=== PATIENT | female | born 1975 | race Caucasian/White ===

== ENCOUNTER 2016-12-01 17:23 | Inpatient (IN) | payer BC ==
[2016-12-01] MEDS ORDERED: Sodium Chloride 0.9% 10 ML Syringe FLUSH PRN ×2 (18:00→18:23)
[2016-12-01] MEDS ORDERED: Citric Acid/Sodium Citrate Solution 30 ML Cup PO SCH (18:00)
[2016-12-01] MEDS ORDERED: Sodium Chloride 0.9% 2.5 ML Syringe FLUSH PRN ×2 (18:00→18:23)
[2016-12-01] MEDS ORDERED: ceFAZolin 2 GM in Premix Bag 1 BAG IV ONE (18:00)
[2016-12-01] MEDS: Lactated Ringers 1,000 ML IV SCH ×2 (18:05→19:14)
--- NOTE | 2016-12-01 18:31 | PCM.PREANE ---
<Jules Mckeon E - Last Filed: 12/01/16 18:26> Preanesthetic Assessment - ANESTHESIA/TRANSFUSION/FAMILY HX Anesthesia/Transfusion History: Prior Anesthesia - REVIEW OF SYSTEMS Constitutional: Reports: no symptoms EVENT ATTENDANT: Reports: no symptoms Respiratory: Reports: no symptoms Cardiovascular: Reports: no symptoms GI: Reports: no symptoms Other: Reports: none - PHYSICAL ASSESSMENT Height: 5 ft 8 in Weight: 260 lb ASA Class: 2E Mental Status: alert & oriented x3 Airway Class: Mallampati = 2 Dentition: Reports: normal dentition Thyro-Mental Finger Breadths: 3 Mouth Opening Finger Breadths: 3 ROM/Head Extension: full Respiratory Status: lungs clear to auscultation bilaterally Cardiovascular Status: regular rate & rhythm, normal S1, S2, no murmur, blood pressure WNL - LAB Values: Laboratory Last Values WBC 10.44 K/uL (4.0-11.0) 12/01/16 18:05 RBC 4.07 M/uL (4.30-5.90) L 12/01/16 18:05 Hgb 12.3 g/dL (12.0-16.0) 12/01/16 18:05 Hct 37.1 % (36.0-46.0) 12/01/16 18:05 MCV 91.2 fL (80.0-98.0) 12/01/16 18:05 MCH 30.2 pg (27.0-32.0) 12/01/16 18:05 MCHC 33.2 g/dL (31.0-37.0) 12/01/16 18:05 RDW Std Deviation 47.1 fl (28.0-62.0) 12/01/16 18:05 RDW Coeff of Dagoberto 14 % (11.0-15.0) 12/01/16 18:05 Plt Count 186 K/uL (150-400) 12/01/16 18:05 MPV 11.20 fL (7.40-12.00) 12/01/16 18:05 Nucleated RBC % 0.0 /100WBC 12/01/16 18:05 Nucleated RBCs # 0 K/uL 12/01/16 18:05 Blood Type O POSITIVE 12/01/16 18:05 Antibody Screen NEGATIVE 12/01/16 18:05 Crossmatch See Detail 12/01/16 18:05 - ALLERGIES Allergies/Adverse Reactions: Allergies Allergy/AdvReac Type Severity Reaction Status Date / Time No Known Allergies Allergy Verified 02/17/14 12:30 - ANESTHESIA PLAN Anesthesia Type Planned: general anesthesia, spinal - ACKNOWLEDGEMENTS Pt an appropriate candidate for the planned anesthesia: Yes Alternatives and risks of anesthesia discussed w pt/guardian: Yes Pt/Guardian understands and agree with anesthesia plan: Yes PreAnesthesia Questionnaire HEENT History: Reports: None Cardiovascular History: Reports: Other (see below) (Recent tachycardia, EKG - SR , Echo essentially normal 09/2017) Respiratory History: Reports: Other (see below) (smoker) Gastrointestinal History: Reports: GERD Genitourinary History: Reports: None TRAIN GATE ATTENDANT History: Reports: : 6 Para: 4 LMP (Approximate): Other OB/BYN History: 1 - vaginal delivery. 3 - c section deliveries Musculoskeletal History: Reports: None Neurological History: Reports: None Psychiatric History: Reports: Depression Endocrine/Metabolic History: Reports: Obesity/BMI 30+ Hematologic History: Reports: None Immunologic History: Reports: None Oncologic (Cancer) History: Reports: None Dermatologic History: Reports: None - Infectious Disease History Infectious Disease History: Reports: None - Past Surgical History Female Surgical History: Reports: Other (see below) (1 vaginal delivery 3 previous c-sections) - SUBSTANCE USE Second Hand Smoke Exposure: Yes Days Per Week of Alcohol Use: 1 Number of Drinks Per Day: 4 Total Drinks Per Week: 4 Recreational Drug Use History: No - HOME MEDS Home Medications: Home Meds Escitalopram [Lexapro] 10 mg PO DAILY 02/17/14 [History] buPROPion [Wellbutrin XL] 150 mg PO DAILY 02/17/14 [History] Norgestrel-Ethinyl Estradiol [Elinest] 1 tab PO DAILY 05/15/14 [History] - CURRENT (IN HOUSE) MEDS Current Meds: Current Medications Citric Acid/Sodium Citrate (Bicitra Solution) 30 ml PO .ONCE CATHERINE Last Admin: 12/01/16 19:45 Dose: 30 ml Lactated Ringer's (Ringers, Lactated) 1,000 mls @ 500 mls/hr IV .BOLUS CATHERINE Last Admin: 12/01/16 19:14 Dose: 500 mls/hr Sodium Chloride (Saline Flush) 10 ml FLUSH ASDIRECTED PRN PRN Reason: Keep Vein Open Sodium Chloride (Saline Flush) 2.5 ml FLUSH ASDIRECTED PRN PRN Reason: Keep Vein Open Sodium Chloride (Saline Flush) 10 ml FLUSH ASDIRECTED PRN PRN Reason: Keep Vein Open Sodium Chloride (Saline Flush) 2.5 ml FLUSH ASDIRECTED PRN PRN Reason: Keep Vein Open Discontinued Medications Fentanyl (Sublimaze) Confirm Administered Dose 100 mcg .ROUTE .STK-MED ONE Stop: 12/01/16 20:52 Glycopyrrolate (Robinul) Confirm Administered Dose 1 mg .ROUTE .STK-MED ONE Stop: 12/01/16 20:08 Cefazolin Sodium/Dextrose 2 gm (/ Premix) 50 mls @ 100 mls/hr IV ONETIME ONE Stop: 12/01/16 18:29 Midazolam HCl (Versed 1 Mg/Ml) Confirm Administered Dose 2 mg .ROUTE .STK-MED ONE Stop: 12/01/16 20:11 Phenylephrine HCl (Phenylephrine In Ns 100 Mcg/Ml) Confirm Administered Dose 1 mg .ROUTE .STK-MED ONE Stop: 12/01/16 20:08 <Fransisco Jerez - Last Filed: 12/01/16 20:55> Preanesthetic Assessment - REVIEW OF SYSTEMS Constitutional: Reports: no symptoms EVENT ATTENDANT: Reports: no symptoms Respiratory: Reports: no symptoms Cardiovascular: Reports: no symptoms GI: Reports: no symptoms Other: Reports: none - PHYSICAL ASSESSMENT ASA Class: 2E Other: 2 iv accesses prepared in case of blood requirement - BLOOD Blood Available: Yes Product(s) Available: PRBC (2u) - ANESTHESIA PLAN Medication Ordered: Antacids (bicitra) Preop Beta Sam: No Anesthesia Type Planned: spinal (Dr. Javier Lancaster)
[2016-12-01] MEDS ORDERED: Phenylephrine/Normal Saline 100 MCG/ML 10 ML Syringe ONE (20:07)
[2016-12-01] MEDS ORDERED: Midazolam 1 MG/ML 2 ML SDV ONE (20:10)
[2016-12-01] MEDS ORDERED: fentaNYL 100 MCG/2 ML SDV ONE (20:51)
[2016-12-01] MEDS ORDERED: Propofol 200 MG/20 ML SDV ONE (20:56)
[2016-12-01] MEDS ORDERED: Lidocaine 2% 5 ML SDV ONE (21:03)
[2016-12-01] MEDS ORDERED: Bisacodyl 10 MG Supp RECTAL PRN (21:52)
[2016-12-01] MEDS ORDERED: Ondansetron 4 MG/2 ML SDV IV PRN (21:52)
[2016-12-01] MEDS ORDERED: diphenhydrAMINE 50 MG/ML SDV IVPUSH PRN ×2 (21:52→21:54)
[2016-12-01] MEDS ORDERED: Lanolin 100% Cream 7 GM Tube TOP PRN (21:52)
[2016-12-01] MEDS ORDERED: Nalbuphine 10 MG/1 ML Vial IVPUSH PRN (21:54)
[2016-12-01] MEDS ORDERED: Naloxone 0.4 MG/ML Syringe IVPUSH PRN (21:54)
[2016-12-01] MEDS ORDERED: fentaNYL 100 MCG/2 ML SDV IVPUSH PRN (21:55)
[2016-12-01] MEDS ORDERED: Lactated Ringers 1,000 ML IV SCH (22:00)
--- NOTE | 2016-12-01 22:06 | PCM.OPNOTE ---
- General Post-Op/Procedure Note Date of Surgery/Procedure: 12/01/16 Operative Procedure(s): 1) Repeat section. 2) Bilateral salpingectomy Findings: Male infant, Wt 3310gram, Apgars 8 and 9. Bloody amniotic fluid with approximately 50mls egress of blood clots. Grossly normal placenta with 3 vessel cord. Normal uterus, tubes and ovaries. Pre Op Diagnosis: 1) 38.1 weeks IUP 2) PROM 3) Possible placental abruption 4) Polyhydramnios. 5)Desires premanent sterilization Post-Op Diagnosis: Same Anesthesia Technique: Spinal Primary Surgeon: Marina Herrera Anesthesia Provider: Jules Mckeon (CARDIOLOGY PHYSICIAN ASSISTANT) Pathology: Placenta. Cord blood and gases Fluid Replacement, Intraop: 4,000 Output, Urine Amount: 200 EBL in mLs: 700 Complications: None Condition: Good
[2016-12-01] MEDS: Ketorolac 30 MG/ML SDV IVPUSH SCH (22:25)
--- NOTE | 2016-12-01 22:42 | PCM.POSTAN ---
POST ANESTHESIA ASSESSMENT - MENTAL STATUS Mental Status: alert, oriented - RESPIRATORY Respiratory Status: respiratory rate WNL, airway patent, O2 saturation stable - CARDIOVASCULAR CV Status: pulse rate WNL, blood pressure stable - GASTROINTESTINAL GI Status: no symptoms - POST OP HYDRATION Hydration Status: adequate & stable
--- NOTE | 2016-12-02 00:43 | OR ---
SURGEON: Marina Herrera MD PIN INSERTER REGULATOR: Placido Walls MD DATE OF PROCEDURE: 12/01/2016 PREOPERATIVE DIAGNOSES: 1. A 38 weeks and 1 day gestation. 2. Premature rupture of membranes. 3. Possible placental abruption. 4. Polyhydramnios. 5. Previous x 3 6. Desires permanent sterilization. POSTOPERATIVE DIAGNOSES: 1. A 38 weeks and 1 day gestation. 2. Premature rupture of membranes. 3. Possible placental abruption. 4. Polyhydramnios. 5. Previous C- section x 3 6. Desires permanent sterilization. 7. Delivered. PROCEDURE: Repeat Low transverse section with bilateral salpingectomies ANESTHESIA: Spinal. ESTIMATED BLOOD LOSS: 700 mL. IV FLUIDS: 4000 of crystalloid. URINE OUTPUT: 200 mL. COMPLICATIONS: None. DISPOSITION: Stable to recovery room. PATHOLOGY: Placenta. Left and Right fallopian tubes. FINDINGS: Male , weight 3310 g. score 8 and 9 at 1 and 5 minutes respectively. Bloody amniotic fluid. Egress of approximately 50mls of clots was noted upon entering the uterine cavity. Grossly normal placenta with 3-vessel cord with no retroplacental clots seen. Normal uterus, tubes, and ovaries. INDICATION: A 40-year-old G6, P4 presented to Labor and Delivery at 38 weeks and 1 day gestation with a history of spontaneous rupture of membrane at about 5:00 p.m., bloody fluid accompanied with irregular contractions. Reported active fetus. On admission, she was found to have heavily blood stained amniotic fluid draining but was otherwise comfortable. heart tracing was a category 1 with irregular contractions on the monitor. On vaginal exam, she was 1 cm dilated. She has a history of 3 prior deliveres and apart from polyhydramnios diagnosed late in the 3rd trimester, she otherwise had an uncomplicated care. GBS negative. She had also requested permanent sterilization at her c- section, opting for a bilateral salpingectomy, which was approved by the Hospital Ethics Committee. When I evaluated the patient, she was nabeel every 2 to 4 minutes and getting increasingly uncomfortable but coping well heart tracing was 130 baseline category 1. The patient was noted to be sitting in a puddle of bloody amniotic fluid. I re-examined her and confirmed that she was 1 cm dilated, and upon examination , copious amount of dark red heavily blood tinged amniotic fluid was noted. She had already consented for repeat section with bilateral salpingectomy and this was confirmed with the patient. section risks were re- explained to the patient and her partner and also explained that she might have had a possible small placental abruption when the membrane rupture occurred but that baby looks good on the monitor and we needed to proceed with a section as soon as possible. She was type and cross- matched 2 units of blood and Ancef 2 g were given. DESCRIPTION OF PROCEDURE: The patient was taken to the operating room, where spinal anesthesia was performed and found to be adequate. She was then placed in dorsal supine position with a leftward tilt and prepped and draped in the normal sterile fashion for section. She had SCDs in place, a Robles catheter in place, and had received 2 g of Ancef. Appropriate time-out was held. A Pfannenstiel incision was made through the old scar and carried through to the underlying layer of fascia with the scalpel. The fascia was scored in the midline and extended laterally with the Saucedo. The superior aspect of this fascial incision was grasped with Luis Miguel clamps, elevated, and the rectus muscle was dissected off with the scalpel. Attention was turned to the inferior aspect of the fascial incision, which in similar fashion was grasped with Luis Miguel clamps and rectus muscle dissected off with the scalpel. The rectus muscle was then elevated in the midline using 2 Allis clamps and was carefully with the Bovie until the parietal peritoneum was reached. The parietal peritoneum was then entered sharply with the Metzenbaum scissors and a digital sweep of the abdominal cavity was performed and no significant adhesions palpated. This peritoneal incision was then extended upwards and downwards with good visualization of the bladder and other vital organs. The incision was further extended laterally by stretching. An Kranthi self-retaining retractor was then placed into the cavity and the vesicoureteral peritoneum was identified, picked up, and entered sharply with the Metzenbaum scissors, and the bladder flap was created digitally. A transverse incision was made on the lower uterine segment, extended upwards and downwards digitally. Once the uterine cavity was entered, an egress of approximately 50 mL of dark blood clots was noted. The infant's head was delivered atraumatically with the senior office support assistant sosa applying fundal pressure, followed by the shoulders and the rest of the baby. The oropharynx and the nostrils were bulb suctioned on the abdomen by my senior office support assistant sosa, Dr. Walls, who is also the cloth mender transportation engineering technician. The cord was then double clamped and cut. The baby was vigorous and cried spontaneously at . Dr. Walls then took the baby over to the warmer for further evaluation. Cord blood and gas samples were obtained. The placenta was delivered manually and no retroplacental cord was noted. The uterine cavity was cleaned of all clots and debris. The hysterotomy site was then repaired in 2 layers using 0 Vicryl suture, the first layer was repaired in a running locked fashion and the second imbricating layer was performed to obtain excellent hemostasis. Due to multiple oozy areas on the edge of the bladder flap, the bladder flap was reapproximated with 3-0 Monocryl suture for extra tamponade, hemostasis was achieved. The hysterotomy site was found to have excellent hemostasis. The fallopian tubes and ovaries were then examined. A verbal confirmation to go ahead with bilateral salpingectomy was obtained from the patient. The left tube was traced to the fimbrial end, then grasped with 2 Babcocks. Using Harmonic device, a salpingectomy was performed with the usual technique. The tube was passed off the surgical field. Attention was turned to the right side, the right tube was identified, traced to the fimbrial end, grasped with 2 Babcocks, and then a salpingectomy was performed using a Harmonic. Both resected areas were found to be hemostatic. Copious irrigation was performed. The Kranthi retractor was removed from the abdominal cavity. The peritoneal edges were identified and this layer was closed with 2-0 Vicryl suture. The muscle was reapproximated with mattress stitches using 2-0 Vicryl. The subfascial layer was found to have excellent hemostasis. The fascia was closed with 0 Vicryl in a running fashion. The subcuticular layer was made hemostatic with electrocautery. The skin was closed with 4-0 Monocryl on a curved needle using subcuticular stitches. The patient tolerated the procedure well. Sponge, instrument, and needle counts were correct at the end of the procedure. Patient was taken to the recovery room in stable condition and the baby stable to the NICU. ADUMVIV / MODL /[id number] MTDD
[2016-12-02] MEDS: Ketorolac 30 MG/ML SDV IVPUSH SCH ×4 (03:35→22:02)
[2016-12-02] MEDS: Docusate Sodium 100 MG Cap PO SCH ×2 (09:03→22:01)
[2016-12-02] MEDS: buPROPion 150 MG Tab.ER PO SCH (09:08)
--- NOTE | 2016-12-02 12:00 | PCM.PNPP ---
- General Info Date of Service: 12/02/16 Functional Status: Reports: pain controlled, tolerating diet, ambulating, urinating - Review of Systems General: Denies: fever, weakness, fatigue, malaise Pulmonary: Denies: shortness of breath, pleuritic chest pain, cough Cardiovascular: Denies: chest pain, palpitations, dyspnea on exertion Genitourinary: Reports: incontinence. Denies: dysuria, flank pain Neurological: Denies: headache Psychiatric: Denies: confusion, depression, mood lability, anxiety - General Info Date of Service: 12/02/16 - Patient Data Vital Signs - most recent: Last Vital Signs Temp 36.4 C 12/02/16 08:30 Pulse 85 12/02/16 08:30 Resp 16 12/02/16 08:30 BP 117/68 12/02/16 08:30 Pulse Ox 97 12/02/16 08:30 Weight - most recent: 260 lb I&O - last 24 hours: Intake & Output 12/01/16 12/02/16 12/02/16 22:59 06:59 14:59 Intake Total 6800 Output Total 400 400 200 Balance 6400 -400 -200 Lab Results - last 24 hrs: Laboratory Results - last 24 hr 12/01/16 12/01/16 12/02/16 Range/Units 18:05 18:05 06:19 WBC 10.44 (4.0-11.0) K/uL RBC 4.07 L (4.30-5.90) M/uL Hgb 12.3 9.9 L (12.0-16.0) g/dL Hct 37.1 29.4 L (36.0-46.0) % MCV 91.2 (80.0-98.0) fL MCH 30.2 (27.0-32.0) pg MCHC 33.2 (31.0-37.0) g/dL RDW Std Deviation 47.1 (28.0-62.0) fl RDW Coeff of Dagoberto 14 (11.0-15.0) % Plt Count 186 (150-400) K/uL MPV 11.20 (7.40-12.00) fL Nucleated RBC % 0.0 /100WBC Nucleated RBCs # 0 K/uL Blood Type O POSITIVE Antibody Screen NEGATIVE Crossmatch See Detail Med Orders - Current: Current Medications Bisacodyl (Dulcolax) 10 mg RECTAL .ONCE PRN PRN Reason: Constipation Bupropion HCl (Wellbutrin Xl) 150 mg PO DAILY ON LICENSE OF [facility] Last Admin: 12/02/16 09:08 Dose: 150 mg Diphenhydramine HCl (Benadryl) 25 mg IVPUSH Q4H PRN PRN Reason: Itching Stop: 12/02/16 21:54 Last Admin: 12/02/16 00:32 Dose: 25 mg Diphenhydramine HCl (Benadryl) 25 mg IVPUSH Q6H PRN PRN Reason: Itching or Nausea Docusate Sodium (Colace) 100 mg PO BID ON LICENSE OF [facility] Last Admin: 12/02/16 09:03 Dose: 100 mg Emollient Ointment (Lansinoh Hpa) 0 gm TOP ASDIRECTED PRN PRN Reason: Sore Nipples Fentanyl (Sublimaze) 50 mcg IVPUSH Q45M PRN PRN Reason: Pain Stop: 12/02/16 15:11 Lactated Ringer's (Ringers, Lactated) 1,000 mls @ 125 mls/hr IV ASDIRECTED ON LICENSE OF [facility] Last Admin: 12/01/16 22:55 Dose: 125 mls/hr Ibuprofen (Motrin) 800 mg PO Q8H PRN PRN Reason: mild pain or fever Ketorolac Tromethamine (Toradol) 30 mg IVPUSH Q6H ON LICENSE OF [facility] Stop: 12/02/16 22:01 Last Admin: 12/02/16 10:31 Dose: 30 mg Nalbuphine HCl (Nubain) 5 mg IVPUSH Q3H PRN PRN Reason: Pruritis Stop: 12/02/16 21:54 Naloxone HCl (Narcan) 0.1 mg IVPUSH ONETIME PRN PRN Reason: Resp. Depression Stop: 12/02/16 21:54 Ondansetron HCl (Zofran) 4 mg IV Q4H PRN PRN Reason: Nausea/Vomiting Oxycodone/Acetaminophen (Percocet 325-5 Mg) 1 tab PO Q4H PRN PRN Reason: Pain (moderate 4-6) Oxycodone/Acetaminophen (Percocet 325-5 Mg) 2 tab PO Q4H PRN PRN Reason: Pain (moderate 4-6) Discontinued Medications Citric Acid/Sodium Citrate (Bicitra Solution) 30 ml PO .ONCE CATHERINE Last Admin: 12/01/16 19:45 Dose: 30 ml Fentanyl (Sublimaze) Confirm Administered Dose 100 mcg .ROUTE .STK-MED ONE Stop: 12/01/16 20:52 Glycopyrrolate (Robinul) Confirm Administered Dose 1 mg .ROUTE .STK-MED ONE Stop: 12/01/16 20:08 Lactated Ringer's (Ringers, Lactated) 1,000 mls @ 500 mls/hr IV .BOLUS CATHERINE Last Admin: 12/01/16 19:14 Dose: 500 mls/hr Cefazolin Sodium/Dextrose 2 gm (/ Premix) 50 mls @ 100 mls/hr IV ONETIME ONE Stop: 12/01/16 18:29 Lidocaine (Xylocaine-Mpf 2%) Confirm Administered Dose 5 ml .ROUTE .STK-MED ONE Stop: 12/01/16 21:04 Midazolam HCl (Versed 1 Mg/Ml) Confirm Administered Dose 2 mg .ROUTE .STK-MED ONE Stop: 12/01/16 20:11 Phenylephrine HCl (Phenylephrine In Ns 100 Mcg/Ml) Confirm Administered Dose 1 mg .ROUTE .STK-MED ONE Stop: 12/01/16 20:08 Propofol (Diprivan 20 Ml) Confirm Administered Dose 200 mg .ROUTE .STK-MED ONE Stop: 12/01/16 20:57 Sodium Chloride (Saline Flush) 10 ml FLUSH ASDIRECTED PRN PRN Reason: Keep Vein Open Sodium Chloride (Saline Flush) 2.5 ml FLUSH ASDIRECTED PRN PRN Reason: Keep Vein Open Sodium Chloride (Saline Flush) 10 ml FLUSH ASDIRECTED PRN PRN Reason: Keep Vein Open Sodium Chloride (Saline Flush) 2.5 ml FLUSH ASDIRECTED PRN PRN Reason: Keep Vein Open - Interaction Infant Disposition, : to Nursery Feeding: Other (see below) (Pumping) - Recovery Exam Fundal Tone: Firm Fundal Level: 1 Fingerbreadths Below Umbilicus Fundal Placement: Midline Lochia Amount: Scant Lochia Color: Rubra/Red Perineum Description: Intact, Minimal Bruising/Swelling Episiotomy/Laceration: None Bladder Status: Voiding Urinary Elimination: Voided - Exam General: alert, oriented Neck: supple Lungs: Clear to auscultation, Normal respiratory effort Cardiovascular: regular rate, regular rhythm Abdomen: bowel sounds present, soft, no tenderness, no distension Extremities: no calf tenderness, edema Wound/Incisions: healing well Psy/Mental Status: alert, normal affect, normal mood - Problem List & Annotations (1) Previous delivery, delivered SNOMED Code(s): 378148035, 829324086 Code(s): O34.219 - MATERNAL CARE FOR UNSP TYPE SCAR FROM PREVIOUS DEL Status: Acute Current Visit: Yes (2) delivery delivered SNOMED Code(s): 481082476 Code(s): O82 - ENCOUNTER FOR DELIVERY WITHOUT INDICATION Status: Acute Current Visit: Yes - Problem List Review Problem List Initiated/Reviewed/Updated: Yes - My Orders Last 24 Hours: My Active Orders 12/01/16 18:00 Non Stress Test [RC] PER UNIT ROUTINE Vital Signs [RC] PER UNIT ROUTINE 12/01/16 18:05 RED BLOOD CELLS LP [BBK] Urgent TYPE AND SCREEN [BBK] Urgent 12/01/16 21:52 Patient Status [ADT] Routine Ambulate [RC] PER UNIT ROUTINE Communication Order [RC] PER UNIT ROUTINE Communication Order [RC] PER UNIT ROUTINE Communication Order [RC] Per Unit Routine May Shower [RC] ASDIRECTED RT Incentive Spirometry [RC] Q2HWA Vital Signs [RC] PER UNIT ROUTINE Acetaminophen/oxyCODONE [Percocet 325-5 MG] 1 tab PO Q4H PRN Acetaminophen/oxyCODONE [Percocet 325-5 MG] 2 tab PO Q4H PRN Bisacodyl [Dulcolax] 10 mg RECTAL .ONCE PRN Ibuprofen [Motrin] 800 mg PO Q8H PRN Lanolin [Lansinoh HPA] See Dose Instructions TOP ASDIRECTED PRN Ondansetron [Zofran] 4 mg IV Q4H PRN diphenhydrAMINE [Benadryl] 25 mg IVPUSH Q6H PRN Abdominal Binder [OM.PC] Routine Assess Lochia [WOMSER] Per Unit Routine Assess Uterine Involution [WOMSER] Per Unit Routine Breast Pump [WOMSER] Per Unit Routine Peripheral IV Discontinue [OM.PC] Routine Sequential Compression Device [OM.PC] Per Unit Routine Resuscitation Status Routine 12/01/16 21:53 Intake and Output [RC] Q4H 12/01/16 21:54 Notify Provider Intake and Out [RC] ASDIRECTED Notify Provider Vital Signs [RC] ASDIRECTED 12/01/16 22:00 Ketorolac [Toradol] 30 mg IVPUSH Q6H Lactated Ringers [Ringers, Lactated] 1,000 ml IV ASDIRECTED 12/02/16 09:00 Docusate Sodium [Colace] 100 mg PO BID buPROPion [Wellbutrin XL] 150 mg PO DAILY 12/02/16 Breakfast Regular Diet [DIET] - Assessment Assessment:: POD #1 s/p RLTCS with bilateral salpingectomies, pain well controlled, ambulating well, tolerating food with mininal lochia. - Plan Plan:: Continue routine care. Aim for discharge tomorrow
--- NOTE | 2016-12-02 14:56 | PCM48HPAN ---
Post Anesthesia Note - EVALUATION WITHIN 48HRS OF ANESTHETIC Vital Signs in Normal Range: Yes Patient Participated in Evaluation: Yes Respiratory Function Stable: Yes Airway Patent: Yes Cardiovascular Function Stable: Yes Hydration Status Stable: Yes Pain Control Satisfactory: Yes Nausea and Vomiting Control Satisfactory: Yes Mental Status Recovered: Yes
[2016-12-02] MEDS: Acetaminophen/oxyCODONE 325-5 MG Tab PO PRN ×2 (19:02→23:57)
[2016-12-03] MEDS: Acetaminophen/oxyCODONE 325-5 MG Tab PO PRN ×5 (05:31→21:54)
[2016-12-03] MEDS: Ibuprofen 800 MG Tab PO PRN ×3 (05:31→21:55)
[2016-12-03] MEDS: Docusate Sodium 100 MG Cap PO SCH ×2 (09:00→21:53)
[2016-12-03] MEDS: buPROPion 150 MG Tab.ER PO SCH (09:00)
--- NOTE | 2016-12-03 12:38 | PCM.PNPP ---
- General Info Date of Service: 12/03/16 Functional Status: Reports: pain controlled, tolerating diet, ambulating, urinating - Review of Systems General: Denies: fever, malaise, chills Pulmonary: Denies: shortness of breath, pleuritic chest pain, cough Cardiovascular: Denies: chest pain, palpitations, dyspnea on exertion Genitourinary: Denies: dysuria, flank pain Neurological: Denies: confusion, headache Psychiatric: Denies: depression, mood lability, anxiety - General Info Date of Service: 12/03/16 - Patient Data Vital Signs - most recent: Last Vital Signs Temp 36.8 C 12/03/16 05:49 Pulse 77 12/03/16 05:49 Resp 18 12/03/16 05:49 BP 122/68 12/03/16 05:49 Pulse Ox 97 12/03/16 05:49 Weight - most recent: 260 lb I&O - last 24 hours: Intake & Output 12/02/16 12/03/16 12/03/16 22:59 06:59 14:59 Output Total 250 Balance -250 Med Orders - Current: Current Medications Bisacodyl (Dulcolax) 10 mg RECTAL .ONCE PRN PRN Reason: Constipation Bupropion HCl (Wellbutrin Xl) 150 mg PO DAILY COUNTS INCLUDE 234 BEDS AT THE [facility] Last Admin: 12/03/16 09:00 Dose: 150 mg Diphenhydramine HCl (Benadryl) 25 mg IVPUSH Q6H PRN PRN Reason: Itching or Nausea Docusate Sodium (Colace) 100 mg PO BID COUNTS INCLUDE 234 BEDS AT THE [facility] Last Admin: 12/03/16 09:00 Dose: 100 mg Emollient Ointment (Lansinoh Hpa) 0 gm TOP ASDIRECTED PRN PRN Reason: Sore Nipples Last Admin: 12/03/16 05:31 Dose: 1 applicful Lactated Ringer's (Ringers, Lactated) 1,000 mls @ 125 mls/hr IV ASDIRECTED COUNTS INCLUDE 234 BEDS AT THE [facility] Last Admin: 12/01/16 22:55 Dose: 125 mls/hr Ibuprofen (Motrin) 800 mg PO Q8H PRN PRN Reason: mild pain or fever Last Admin: 12/03/16 05:31 Dose: 800 mg Ondansetron HCl (Zofran) 4 mg IV Q4H PRN PRN Reason: Nausea/Vomiting Oxycodone/Acetaminophen (Percocet 325-5 Mg) 1 tab PO Q4H PRN PRN Reason: Pain (moderate 4-6) Last Admin: 12/03/16 05:31 Dose: 1 tab Oxycodone/Acetaminophen (Percocet 325-5 Mg) 2 tab PO Q4H PRN PRN Reason: Pain (moderate 4-6) Last Admin: 12/03/16 09:00 Dose: 2 tab Discontinued Medications Citric Acid/Sodium Citrate (Bicitra Solution) 30 ml PO .ONCE CATHERINE Last Admin: 12/01/16 19:45 Dose: 30 ml Diphenhydramine HCl (Benadryl) 25 mg IVPUSH Q4H PRN PRN Reason: Itching Stop: 12/02/16 21:54 Last Admin: 12/02/16 00:32 Dose: 25 mg Fentanyl (Sublimaze) Confirm Administered Dose 100 mcg .ROUTE .STK-MED ONE Stop: 12/01/16 20:52 Fentanyl (Sublimaze) 50 mcg IVPUSH Q45M PRN PRN Reason: Pain Stop: 12/02/16 15:11 Glycopyrrolate (Robinul) Confirm Administered Dose 1 mg .ROUTE .STK-MED ONE Stop: 12/01/16 20:08 Lactated Ringer's (Ringers, Lactated) 1,000 mls @ 500 mls/hr IV .BOLUS COUNTS INCLUDE 234 BEDS AT THE [facility] Last Admin: 12/01/16 19:14 Dose: 500 mls/hr Cefazolin Sodium/Dextrose 2 gm (/ Premix) 50 mls @ 100 mls/hr IV ONETIME ONE Stop: 12/01/16 18:29 Ketorolac Tromethamine (Toradol) 30 mg IVPUSH Q6H CATHERINE Stop: 12/02/16 22:01 Last Admin: 12/02/16 22:02 Dose: 30 mg Lidocaine (Xylocaine-Mpf 2%) Confirm Administered Dose 5 ml .ROUTE .STK-MED ONE Stop: 12/01/16 21:04 Midazolam HCl (Versed 1 Mg/Ml) Confirm Administered Dose 2 mg .ROUTE .STK-MED ONE Stop: 12/01/16 20:11 Nalbuphine HCl (Nubain) 5 mg IVPUSH Q3H PRN PRN Reason: Pruritis Stop: 12/02/16 21:54 Naloxone HCl (Narcan) 0.1 mg IVPUSH ONETIME PRN PRN Reason: Resp. Depression Stop: 12/02/16 21:54 Phenylephrine HCl (Phenylephrine In Ns 100 Mcg/Ml) Confirm Administered Dose 1 mg .ROUTE .STK-MED ONE Stop: 12/01/16 20:08 Propofol (Diprivan 20 Ml) Confirm Administered Dose 200 mg .ROUTE .STK-MED ONE Stop: 12/01/16 20:57 Sodium Chloride (Saline Flush) 10 ml FLUSH ASDIRECTED PRN PRN Reason: Keep Vein Open Sodium Chloride (Saline Flush) 2.5 ml FLUSH ASDIRECTED PRN PRN Reason: Keep Vein Open Sodium Chloride (Saline Flush) 10 ml FLUSH ASDIRECTED PRN PRN Reason: Keep Vein Open Sodium Chloride (Saline Flush) 2.5 ml FLUSH ASDIRECTED PRN PRN Reason: Keep Vein Open - Interaction Infant Disposition, : at Bedside Infant Interaction: Holding Infant Feeding: Continues to Breastfeed, Other (see below) (Pumping) - Recovery Exam Fundal Tone: Firm Fundal Level: 1 Fingerbreadths Below Umbilicus Fundal Placement: Midline Lochia Amount: Scant Lochia Color: Rubra/Red Perineum Description: Intact, Minimal Bruising/Swelling Episiotomy/Laceration: None Bladder Status: Voiding Urinary Elimination: Voided - Exam General: alert, moderate distress HEENT: Pupils equal Lungs: Clear to auscultation, Normal respiratory effort Cardiovascular: regular rate, regular rhythm Abdomen: soft, no tenderness, no distension Extremities: no calf tenderness, edema Wound/Incisions: healing well Psy/Mental Status: alert, normal affect, normal mood - Problem List & Annotations (1) Previous delivery, delivered SNOMED Code(s): 806080406, 072861719 Code(s): O34.219 - MATERNAL CARE FOR UNSP TYPE SCAR FROM PREVIOUS DEL Status: Acute Current Visit: Yes (2) delivery delivered SNOMED Code(s): 781712001 Code(s): O82 - ENCOUNTER FOR DELIVERY WITHOUT INDICATION Status: Acute Current Visit: Yes - Problem List Review Problem List Initiated/Reviewed/Updated: Yes - Assessment Assessment:: POD #2 s/p RLTCS with bilateral salpingectomies, pain well controlled, ambulating well, mininal lochia, afebrile - Plan Plan:: Baby is being kept for observation for another 24 hours so will discharge patient tomorrow. Continue with routine care
[2016-12-04] MEDS: Acetaminophen/oxyCODONE 325-5 MG Tab PO PRN ×3 (02:13→10:35)
[2016-12-04] MEDS: Ibuprofen 800 MG Tab PO PRN (06:27)
[2016-12-04 07:45] VITALS: BP 132/68
--- NOTE | 2016-12-04 09:01 | PCM.PNPP ---
- General Info Date of Service: 12/04/16 Functional Status: Reports: pain controlled, tolerating diet, ambulating, urinating - Review of Systems General: Denies: fever, weakness, fatigue, malaise, chills Pulmonary: Denies: shortness of breath, pleuritic chest pain, cough Cardiovascular: Denies: chest pain, palpitations, dyspnea on exertion Gastrointestinal: Denies: Abdominal pain Genitourinary: Denies: dysuria, flank pain Neurological: Denies: headache Psychiatric: Denies: confusion, depression, mood lability, anxiety - General Info Date of Service: 12/04/16 - Patient Data Vital Signs - most recent: Last Vital Signs Temp 36.8 C 12/04/16 07:44 Pulse 88 12/04/16 07:44 Resp 18 12/04/16 07:44 BP 132/68 12/04/16 07:44 Pulse Ox 96 12/04/16 07:44 Weight - most recent: 260 lb Med Orders - Current: Current Medications Bisacodyl (Dulcolax) 10 mg RECTAL .ONCE PRN PRN Reason: Constipation Bupropion HCl (Wellbutrin Xl) 150 mg PO DAILY [facility] Last Admin: 12/03/16 09:00 Dose: 150 mg Diphenhydramine HCl (Benadryl) 25 mg IVPUSH Q6H PRN PRN Reason: Itching or Nausea Docusate Sodium (Colace) 100 mg PO BID [facility] Last Admin: 12/03/16 21:53 Dose: 100 mg Emollient Ointment (Lansinoh Hpa) 0 gm TOP ASDIRECTED PRN PRN Reason: Sore Nipples Last Admin: 12/03/16 05:31 Dose: 1 applicful Lactated Ringer's (Ringers, Lactated) 1,000 mls @ 125 mls/hr IV ASDIRECTED [facility] Last Admin: 12/01/16 22:55 Dose: 125 mls/hr Ibuprofen (Motrin) 800 mg PO Q8H PRN PRN Reason: mild pain or fever Last Admin: 12/04/16 06:27 Dose: 800 mg Ondansetron HCl (Zofran) 4 mg IV Q4H PRN PRN Reason: Nausea/Vomiting Oxycodone/Acetaminophen (Percocet 325-5 Mg) 1 tab PO Q4H PRN PRN Reason: Pain (moderate 4-6) Last Admin: 12/04/16 06:28 Dose: 1 tab Oxycodone/Acetaminophen (Percocet 325-5 Mg) 2 tab PO Q4H PRN PRN Reason: Pain (moderate 4-6) Last Admin: 12/04/16 02:13 Dose: 2 tab Discontinued Medications Citric Acid/Sodium Citrate (Bicitra Solution) 30 ml PO .ONCE CATHERINE Last Admin: 12/01/16 19:45 Dose: 30 ml Diphenhydramine HCl (Benadryl) 25 mg IVPUSH Q4H PRN PRN Reason: Itching Stop: 12/02/16 21:54 Last Admin: 12/02/16 00:32 Dose: 25 mg Fentanyl (Sublimaze) Confirm Administered Dose 100 mcg .ROUTE .STK-MED ONE Stop: 12/01/16 20:52 Fentanyl (Sublimaze) 50 mcg IVPUSH Q45M PRN PRN Reason: Pain Stop: 12/02/16 15:11 Glycopyrrolate (Robinul) Confirm Administered Dose 1 mg .ROUTE .STK-MED ONE Stop: 12/01/16 20:08 Lactated Ringer's (Ringers, Lactated) 1,000 mls @ 500 mls/hr IV .BOLUS [facility]INE Last Admin: 12/01/16 19:14 Dose: 500 mls/hr Cefazolin Sodium/Dextrose 2 gm (/ Premix) 50 mls @ 100 mls/hr IV ONETIME ONE Stop: 12/01/16 18:29 Ketorolac Tromethamine (Toradol) 30 mg IVPUSH Q6H CATHERINE Stop: 12/02/16 22:01 Last Admin: 12/02/16 22:02 Dose: 30 mg Lidocaine (Xylocaine-Mpf 2%) Confirm Administered Dose 5 ml .ROUTE .STK-MED ONE Stop: 12/01/16 21:04 Midazolam HCl (Versed 1 Mg/Ml) Confirm Administered Dose 2 mg .ROUTE .STK-MED ONE Stop: 12/01/16 20:11 Nalbuphine HCl (Nubain) 5 mg IVPUSH Q3H PRN PRN Reason: Pruritis Stop: 12/02/16 21:54 Naloxone HCl (Narcan) 0.1 mg IVPUSH ONETIME PRN PRN Reason: Resp. Depression Stop: 12/02/16 21:54 Phenylephrine HCl (Phenylephrine In Ns 100 Mcg/Ml) Confirm Administered Dose 1 mg .ROUTE .STK-MED ONE Stop: 12/01/16 20:08 Propofol (Diprivan 20 Ml) Confirm Administered Dose 200 mg .ROUTE .STK-MED ONE Stop: 12/01/16 20:57 Sodium Chloride (Saline Flush) 10 ml FLUSH ASDIRECTED PRN PRN Reason: Keep Vein Open Sodium Chloride (Saline Flush) 2.5 ml FLUSH ASDIRECTED PRN PRN Reason: Keep Vein Open Sodium Chloride (Saline Flush) 10 ml FLUSH ASDIRECTED PRN PRN Reason: Keep Vein Open Sodium Chloride (Saline Flush) 2.5 ml FLUSH ASDIRECTED PRN PRN Reason: Keep Vein Open - Infant Interaction Infant Disposition, : [place] to Nursery Infant Feeding: Breastfed Infant; Nursed Well, Continues to Breastfeed, Other ( see below) Support Person: Significant Other - Recovery Exam Fundal Tone: Firm Fundal Level: 1 Fingerbreadths Below Umbilicus Fundal Placement: Midline Lochia Amount: Scant Lochia Color: Rubra/Red Perineum Description: Intact, Minimal Bruising/Swelling Episiotomy/Laceration: None Bladder Status: Voiding Urinary Elimination: Voided - Exam General: alert, oriented Neck: supple Lungs: Clear to auscultation, Normal respiratory effort Cardiovascular: regular rate, regular rhythm Abdomen: bowel sounds present, soft, no tenderness, no distension Extremities: no calf tenderness, edema Skin: warm Wound/Incisions: healing well Psy/Mental Status: alert, normal affect, normal mood - Problem List & Annotations (1) Previous delivery, delivered SNOMED Code(s): 726205819, 540766755 Code(s): O34.219 - MATERNAL CARE FOR UNSP TYPE SCAR FROM PREVIOUS DEL Status: Acute Current Visit: Yes (2) delivery delivered SNOMED Code(s): 937663577 Code(s): O82 - ENCOUNTER FOR DELIVERY WITHOUT INDICATION Status: Acute Current Visit: Yes - Problem List Review Problem List Initiated/Reviewed/Updated: Yes - Assessment Assessment:: POD #3 s/p RLTCS with bilateral salpingectomies, stable and afebrile - Plan Plan:: Discharge instructions reviewed Continue PNV Bleeding and infection precautions reviewed Incision care discussed Nothing in the vagina for 6 weeks Follow up in 2 and 6 weeks for incision check and routine care
[2016-12-04] MEDS: buPROPion 150 MG Tab.ER PO SCH (09:05)
[2016-12-04] MEDS: Docusate Sodium 100 MG Cap PO SCH (09:06)
== END 2016-12-04 12:55 | disposition home or self-care (01) | DRG 540 ==
LOC: MW.OBCHECK 17:23 → MW.OB 17:28 → MW.OBCHECK 18:22 → MW.OB 18:23 → OBSVTOIN 18:23 → MW.OB 18:23
PROVIDERS: ADMIT Obstetrics & Gynecology; ATTEND Obstetrics & Gynecology
PROC: 10D00Z1 Extraction of Products of Conception, Low, Open Approach (ICD-10-PCS; principal; 2016-12-01)
PROC: 0UT70ZZ Resection of Bilateral Fallopian Tubes, Open Approach (ICD-10-PCS; 2016-12-01)
DX: O42.02 Full-term premature rupture of membranes, onset of labor within 24 hours of rupture (principal); O45.93 Premature separation of placenta, unspecified, third trimester; O40.3XX0 Polyhydramnios, third trimester, not applicable or unspecified; Z30.2 Encounter for sterilization; O09.523 Supervision of elderly multigravida, third trimester; Z3A.38 38 weeks gestation of pregnancy; Z37.0 Single live birth
CPT/HCPCS: 01961; 36415; 85014; 85018; 85027; 88302; 88307; A9270-GY; J1200; J1885; J2250; J2704; J3010; J7120

== ENCOUNTER 2018-02-26 08:36 | Day surgery (SDC) | payer BC ==
[2018-02-25 12:48] LABS: CHLORIDE,CL 107 mmol/L (98-107); SODIUM,NA 139 mmol/L (136-145)
[2018-02-26] MEDS: Lactated Ringers 1,000 ML IV SCH ×2 (08:50→21:27)
[2018-02-26] MEDS ORDERED: Methylene Blue 50 MG/10 ML Ampule ONE (11:13)
[2018-02-26] MEDS ORDERED: Bupivacaine 0.25% 10 ML SDV ONE (11:13)
[2018-02-26] MEDS ORDERED: Fluorescein 5 ML Vial ONE (11:15)
--- NOTE | 2018-02-26 11:44 | PCM.PREANE ---
Preanesthetic Assessment - Anesthesia/Transfusion/Family Hx Anesthesia History: Prior Anesthesia Without Reaction Family History of Anesthesia Reaction: No Transfusion History: No Prior Transfusion(s) - Review of Systems General: No Symptoms Pulmonary: No Symptoms Cardiovascular: No Symptoms Gastrointestinal: No Symptoms Neurological: No Symptoms Other: Reports: None - Physical Assessment NPO Status Date: 02/25/18 NPO Status Time: 18:00 O2 Sat by Pulse Oximetry: 97 Respiratory Rate: 16 Vital Signs: Last Vital Signs Temp 36.5 C 02/26/18 08:50 Pulse 64 02/26/18 08:50 Resp 16 02/26/18 08:50 BP 116/67 02/26/18 08:50 Pulse Ox 97 02/26/18 08:50 Height: 1.75 m Weight: 105.233 kg Mental Status: Alert & Oriented x3 Airway Class: Mallampati = 1 Dentition: Reports: Normal Dentition ROM/Head Extension: Full Lungs: Clear to Auscultation, Normal Respiratory Effort Cardiovascular: Regular Rate, Regular Rhythm - Lab Values: Laboratory Last Values WBC 6.49 K/uL (4.0-11.0) 02/25/18 11:55 RBC 4.26 M/uL (4.30-5.90) L 02/25/18 11:55 Hgb 11.6 g/dL (12.0-16.0) L 02/25/18 11:55 Hct 35.9 % (36.0-46.0) L 02/25/18 11:55 MCV 84.3 fL (80.0-98.0) 02/25/18 11:55 MCH 27.2 pg (27.0-32.0) 02/25/18 11:55 MCHC 32.3 g/dL (31.0-37.0) 02/25/18 11:55 RDW Std Deviation 44.6 fl (28.0-62.0) 02/25/18 11:55 RDW Coeff of Dagoberto 14 % (11.0-15.0) 02/25/18 11:55 Plt Count 327 K/uL (150-400) 02/25/18 11:55 MPV 10.30 fL (7.40-12.00) 02/25/18 11:55 Nucleated RBC % 0.0 /100WBC 02/25/18 11:55 Nucleated RBCs # 0 K/uL 02/25/18 11:55 Sodium 139 mmol/L (136-145) 02/25/18 11:55 Potassium 4.0 mmol/L (3.5-5.1) 02/25/18 11:55 Chloride 107 mmol/L (98-107) 02/25/18 11:55 Carbon Dioxide 25.3 mmol/L (21.0-32.0) 02/25/18 11:55 BUN 15 mg/dL (7.0-18.0) 02/25/18 11:55 Creatinine 0.8 mg/dL (0.6-1.0) 02/25/18 11:55 Est Cr Clr Drug Dosing 95.74 mL/min 02/25/18 11:55 Estimated GFR (MDRD) > 60.0 ml/min 02/25/18 11:55 Glucose 101 mg/dL (74-106) 02/25/18 11:55 Calcium 9.7 mg/dL (8.5-10.1) 02/25/18 11:55 Total Bilirubin 0.2 mg/dL (0.2-1.0) 02/25/18 11:55 AST 15 IU/L (15-37) 02/25/18 11:55 ALT 19 IU/L (14-63) 02/25/18 11:55 Alkaline Phosphatase 83 U/L (46-116) 02/25/18 11:55 Total Protein 6.9 g/dL (6.4-8.2) 02/25/18 11:55 Albumin 3.7 g/dL (3.4-5.0) 02/25/18 11:55 Globulin 3.2 g/dL (2.0-3.5) 02/25/18 11:55 Albumin/Globulin Ratio 1.2 (1.3-2.8) L 02/25/18 11:55 Blood Type O POSITIVE 02/25/18 11:55 Antibody Screen NEGATIVE 02/25/18 11:55 - Allergies Allergies/Adverse Reactions: Allergies Allergy/AdvReac Type Severity Reaction Status Date / Time No Known Allergies Allergy Verified 01/31/18 08:35 - Acknowledgements Anesthesia Type Planned: General Anesthesia Pt an Appropriate Candidate for the Planned Anesthesia: Yes Alternatives and Risks of Anesthesia Discussed w Pt/Guardian: Yes Pt/Guardian Understands and Agrees with Anesthesia Plan: Yes Additional Comments: scop patch applied last pm PreAnesthesia Questionnaire HEENT History: Reports: Other (See Below) Other HEENT History: wears glasses Cardiovascular History: Reports: Other (See Below) Respiratory History: Reports: Other (See Below) Gastrointestinal History: Reports: GERD Genitourinary History: Reports: None [employer] History: Reports: Other OB/BYN History: 1 - vaginal delivery. 3 - c section deliveries Musculoskeletal History: Reports: None Neurological History: Reports: None Psychiatric History: Reports: Anxiety, Depression Endocrine/Metabolic History: Reports: Obesity/BMI 30+ Hematologic History: Reports: None Immunologic History: Reports: None Oncologic (Cancer) History: Reports: None Dermatologic History: Reports: None - Infectious Disease History Infectious Disease History: Reports: None - Past Surgical History Head Surgeries/Procedures: Reports: None HEENT Surgical History: Reports: Oral Surgery Cardiovascular Surgical History: Reports: None Female Surgical History: Reports: Section, D&C Other Female Surgeries/Procedures: c/section x4 - SUBSTANCE USE Smoking Status *Q: Current Every Day Smoker Tobacco Use Within Last Twelve Months: Cigarettes Second Hand Smoke Exposure: Yes Days Per Week of Alcohol Use: 1 Number of Drinks Per Day: 4 Total Drinks Per Week: 4 Recreational Drug Use History: No - HOME MEDS Home Medications: Home Meds Ascorbic Acid [Vitamin C] 1 tab PO DAILY 01/31/18 [History] Cholecalciferol (Vitamin D3) [Vitamin D3] 1 tab PO DAILY 01/31/18 [History] Iron 1 tab PO ASDIRECTED 01/31/18 [History] Multivitamin [Multivitamins] 1 tab PO DAILY 01/31/18 [History] - CURRENT (IN HOUSE) MEDS Current Meds: Current Medications Lactated Ringer's (Ringers, Lactated) 1,000 mls @ 125 mls/hr IV ASDIRECTED CATHERINE Last Admin: 02/26/18 08:50 Dose: 125 mls/hr Discontinued Medications Bupivacaine HCl (Sensorcaine-Mpf 0.25%) Confirm Administered Dose 10 ml .ROUTE .STK-MED ONE Stop: 02/26/18 11:14 Fluorescein Sodium (Ak-Fluor) Confirm Administered Dose 5 ml .ROUTE .STK-MED ONE Stop: 02/26/18 11:16 Methylene Blue (Provayblue) Confirm Administered Dose 50 mg .ROUTE .[facility]-MED ONE Stop: 02/26/18 11:14
[2018-02-26] MEDS ORDERED: Midazolam 1 MG/ML 2 ML SDV ONE (11:46)
[2018-02-26] MEDS ORDERED: fentaNYL 250 MCG/5 ML SDV ONE (11:46)
[2018-02-26] MEDS ORDERED: Propofol 200 MG/20 ML SDV ONE (11:46)
[2018-02-26] MEDS ORDERED: Lidocaine 2% 5 ML SDV ONE (12:25)
[2018-02-26] MEDS ORDERED: Dexamethasone 4 MG/ML 5 ML MDV ONE (12:25)
[2018-02-26] MEDS ORDERED: Rocuronium 10 MG/ML 10 ML Syringe ONE (12:25)
[2018-02-26] MEDS ORDERED: Ketorolac 30 MG/ML SDV ONE (12:25)
[2018-02-26] MEDS ORDERED: Ondansetron 4 MG/2 ML SDV ONE (12:25)
[2018-02-26] MEDS ORDERED: fentaNYL 100 MCG/2 ML SDV ONE (14:10)
[2018-02-26] MEDS ORDERED: Ondansetron 4 MG/2 ML SDV IVPUSH PRN (14:37)
[2018-02-26] MEDS ORDERED: Acetaminophen/oxyCODONE 325-5 MG Tab PO PRN (14:37)
[2018-02-26] MEDS ORDERED: Promethazine 25 MG/ML SDV IM PRN (14:37)
[2018-02-26] MEDS ORDERED: Morphine 10 MG/ML Syringe IVPUSH PRN (14:37)
[2018-02-26] MEDS ORDERED: Ketorolac 30 MG/ML SDV IVPUSH ONE (14:37)
[2018-02-26] MEDS ORDERED: HYDROmorphone 2 MG/ML SDV IVPUSH ONE (14:40)
[2018-02-26] MEDS ORDERED: Belladonna Alkaloids/Opium 16.2-30 MG Supp RECTAL ONE (14:41)
--- NOTE | 2018-02-26 14:45 | PCM.OPNOTE ---
- General Post-Op/Procedure Note Date of Surgery/Procedure: 02/26/18 Operative Procedure(s): laparoscopically assisted vaginal hysterectomy, with cystoscopy Findings: uterus, boggy 10 weeks size, very dense adhesions between the bladder and lower uterine segment. Small cystotomy identified and repaired, copious flow of bright green urine from bilateral ureteral orifcies on cystoscopy. Pre Op Diagnosis: menorrhagia, submucosal fibroid. Post-Op Diagnosis: Same Anesthesia Technique: General ET Tube Primary Surgeon: Cherrie Weinberg Secondary Surgeon: Nicolasa Vasquez Anesthesia Provider: Jules Alegria Pathology: uterus Fluid Replacement, Intraop: 1,600 EBL in mLs: 250 Complications: Cystotomy and repair. Condition: Good Free Text/Narrative:: Intake & Output 02/25/18 02/26/18 02/26/18 22:59 06:59 14:59 Output Total 800 Balance -800
--- NOTE | 2018-02-26 15:24 | PCM.POSTAN ---
POST ANESTHESIA ASSESSMENT - MENTAL STATUS Mental Status: Alert, Oriented - RESPIRATORY Respiratory Status: Respiratory Rate WNL, Airway Patent, O2 Saturation Stable - CARDIOVASCULAR CV Status: Pulse Rate WNL - GASTROINTESTINAL GI Status: No Symptoms - PAIN Pain Score: 6 - POST OP HYDRATION Hydration Status: Adequate & Stable - OBSERVATIONS Free Text/Narrative:: no anesthesia problems
[2018-02-26] MEDS: Ketorolac 30 MG/ML SDV IVPUSH SCH ×2 (15:59→21:27)
--- NOTE | 2018-02-26 17:33 | PCM.SN ---
- Free Text/Narrative Note: patient denies pain, denies nausea. Tolerating clears. Reviewed operative findings, including dense adhesions between the bladder and uterus, resulting in small cystotomy, need to continue with rangel catheter for one week, continue with antibiotic prophylaxis. Just recently arrived to floor, UO 950 in recovery , less than 50 since arrival on the floor, nurse will check bladder scan, if empty, then 500 ml bolus normal saline.
[2018-02-26] MEDS: Acetaminophen/oxyCODONE 325-5 MG Tab PO PRN ×2 (17:59→22:21)
--- NOTE | 2018-02-26 18:01 | OR ---
SURGEON: Cherrie Weinberg M.D. DATE OF PROCEDURE: 02/26/2018 PREOPERATIVE DIAGNOSES: Menorrhagia and submucosal fibroid. POSTOPERATIVE DIAGNOSES: Menorrhagia and submucosal fibroid. PROCEDURES PERFORMED: Laparoscopically-assisted vaginal hysterectomy with cystoscopy. PROPULSION MOTOR AND GENERATOR REPAIRER: Nicolasa Vasquez. ANESTHESIA: General endotracheal. FLUIDS: 1600 mL of crystalloid. ESTIMATED BLOOD LOSS: 250 mL. FINDINGS: Uterus, enlarged boggy 10-week size. Bilateral ovaries appeared normal. A 5 to 6 mm cystotomy was identified and repaired. There was copious flow of bright green urine from bilateral ureteral orifices. COMPLICATIONS: Cystotomy and repair. DISPOSITION: Stable to recovery. BRIEF HISTORY: This is a 42-year-old female, she is G6, P5-0-1-5, with four prior sections. She presents for evaluation for menorrhagia. Initially, she was planning on having an ablation, but after discovering a submucosal fibroid, she preferred definitive management with hysterectomy. All options have been discussed including fibroid embolization, radiofrequency ablation, myomectomy, and hysterectomy. She desires to proceed with hysterectomy. She understands that after hysterectomy, she will no longer be able to conceive and she states that she is excepting this without any regret. Due to four prior deliveries, I did recommend proceeding with a laparoscopically-assisted approach due to the potential for significant bladder adhesions, which I felt could be dealt with better laparoscopically. Surgical risks including risk of bleeding, infection, injury to bowel, bladder, blood vessels, ureters or other organs, risk of thromboembolic event, risk of anesthesia, risk of change in sexual function were discussed. Understanding all these risks, she does desire to proceed. DESCRIPTION OF PROCEDURE: With the patient in dorsal lithotomy position, under adequate general endotracheal anesthesia, the abdomen was prepped with chlorhexidine. The perineum and vagina were prepped with Betadine and draped in usual fashion for laparoscopically-assisted vaginal surgery. SCDs were in place. Robles catheter was then placed and backfilled with 30 mL of dilute methylene blue, and she had received 2 g of Ancef IV. After an appropriate time-out was held, bimanual examination revealed a mobile 8-week size uterus. Speculum was placed in the vagina. The ZUMI uterine manipulator was placed. The speculum was removed, press operator apprentice's gloves were changed. Attention was then turned to the abdomen where 3 mL of 0.25% Marcaine were injected inferior to the umbilicus. A vertical incision was made with a scalpel and a Veress needle was inserted. Opening pressure was 3 mmHg. CO2 was insufflated to develop an adequate pneumoperitoneum of 13 mmHg. The 5 mm port was placed. The laparoscope was placed into the abdominal cavity. There was no evidence of any trauma from the port placement site. There was good visualization of the pelvis. The uterus was elevated and inspected. Bilateral ureters were identified deep in the pelvis, beneath the field of dissection. Two additional ports were placed 2 cm medial and cephalad from the anterior superior iliac spine on the right and the left. The utero-ovarian ligament was then doubly cauterized and ligated using LigaSure followed by ligation of the round ligament opening the anterior leaf of the broad ligament, and the posterior leaf dissecting downward and transecting the upper portion of the broad ligament using the LigaSure. It was evident that there were extremely dense adhesions between the bladder and the lower uterine segment and once the broad ligaments were dissected on the right and the left, I was able to place the posterior arm of the LigaSure beneath the peritoneal reflection of the bladder, this was extremely dense and thick scar tissue. I was able to begin the dissection. I then used hydrodissection to assist and I completely opened the peritoneal surface above the bladder, but I was not able to dissect any further down either with hydrodissection, and I felt like I could not safely dissect sharply or with the LigaSure. Therefore, decision was made to proceed with a vaginal approach. The bladder was released. The abdomen was desufflated, and weighted speculum was placed posteriorly, and vaginal sidewall retractors were placed. The cervix was grasped with Azael tenaculum, circumscribed using electrocautery. The posterior cul-de-sac was entered sharply. Andria weighted speculum was placed posteriorly. I began the dissection to the anterior cul-de-sac using sharp dissection with Metzenbaum scissors and an open C-sponge. I was able to dissect approximately 3 cm cephalad from the external cervix and I felt I could safely then proceed with clamping of the uterosacral ligaments, which I did cross clamp, cut, and ligate with a Gillian ligature. I then proceeded with further sharp and blunt dissection. There was no plane identified. I will try dissecting laterally and still there was no plane identified. At one point, I felt that the bladder mucosa may have been compromised, although there was no urine or blue dye that was emitted. I did continue with the dissection and I reached the serosal surface of the uterus, which had been opened from above. I proceeded with completion of the hysterectomy with two additional pedicles on the right and the left. The uterus was then delivered vaginally. The vaginal cuff was then grasped with Allis clamps, and I requested that the bladder be backfilled with sterile milk. With backfilling the bladder with sterile milk, I could identify the small cystotomy, which appeared to be approximately 5 to 6 cm in length in the mid upper trigone of the bladder directly in the midline. The potential for cystotomy had been discussed with the patient as it was anticipated based on four prior deliveries and known dense adhesions from her fairly recent operative report. I closed the mucosal layer with a running suture of 4-0 plain and proceeded with two imbricating layers using 3-0 Vicryl. I then backfilled the bladder with 120 mL of sterile milk. There was no leakage from the small cystotomy site. The retained uterosacral ligaments were plicated to the vaginal apices bilaterally. The vaginal cuff was closed with a running lock suture of 0 Polysorb. Cystoscopy was then performed. IV fluorescein was given, and there was copious flow of bright green urine from both ureteral orifices. The site of cystotomy repair was inspected, was hemostatic and was identified as a small bump in the upper mid trigone of the bladder. There was no evidence of any other injury to the bladder mucosa. This being completed, the speculum was again placed in the vagina. The vaginal cuff was hemostatic. Coat Finisher's gloves were changed. Abdomen was reinsufflated. The pelvis was copiously irrigated and under high and low pressure, was completely hemostatic. Therefore, the abdomen was desufflated. The ports were removed, and the port sites were closed with a running subcuticular suture of 3-0 Monocryl. Final sponge, needle, and instrument counts were reported as correct. Complication was cystotomy with repair. JANIA / DREW /[id number]
[2018-02-26] MEDS ORDERED: Lactated Ringers 500 ML IV SCH (19:00)
[2018-02-26] MEDS ORDERED: Nitrofurantoin Macrocrystal 50 MG Cap PO SCH (21:00)
[2018-02-27] MEDS: Acetaminophen/oxyCODONE 325-5 MG Tab PO PRN ×2 (02:58→07:20)
[2018-02-27] MEDS: Ketorolac 30 MG/ML SDV IVPUSH SCH ×2 (02:59→08:37)
[2018-02-27 05:42] LABS: CHLORIDE,CL 106 mmol/L (98-107); SODIUM,NA 138 mmol/L (136-145)
[2018-02-27] MEDS: Lactated Ringers 1,000 ML IV SCH (06:41)
--- NOTE | 2018-02-27 07:45 | PCM48HPAN ---
Post Anesthesia Note - EVALUATION WITHIN 48HRS OF ANESTHETIC Vital Signs in Normal Range: Yes Patient Participated in Evaluation: Yes Respiratory Function Stable: Yes Airway Patent: Yes Cardiovascular Function Stable: Yes Hydration Status Stable: Yes Pain Control Satisfactory: Yes Nausea and Vomiting Control Satisfactory: Yes Mental Status Recovered: Yes Resp Rate: 18
--- NOTE | 2018-02-27 08:18 | PCM.SURGPN ---
- General Info Date of Service: 02/27/18 Date of Surgery/Procedure: 02/26/18 POD#: 1 Post-Op Diagnosis: menorrhagia, uterine fibroid Admission Diagnosis/Problem: Menorrhagia Functional Status: Reports: Pain Controlled, Tolerating Diet, Ambulating. Denies: Urinating (catheter in place) - Review of Systems General: Reports: No Symptoms HEENT: Reports: No Symptoms Pulmonary: Reports: No Symptoms Cardiovascular: Reports: No Symptoms Gastrointestinal: Reports: No Symptoms Genitourinary: Reports: No Symptoms Musculoskeletal: Reports: No Symptoms Skin: Reports: No Symptoms Neurological: Reports: No Symptoms Psychiatric: Reports: No Symptoms - Patient Data Vitals - Most Recent: Last Vital Signs Temp 36.8 C 02/27/18 05:00 Pulse 68 02/27/18 05:00 Resp 18 02/27/18 07:45 BP 118/66 02/27/18 05:00 Pulse Ox 97 02/27/18 05:00 Weight - Most Recent: 105.233 kg I&O - Last 24 Hours: Intake & Output 02/26/18 02/27/18 02/27/18 22:59 06:59 14:59 Intake Total 2750 2199 Output Total 150 1500 Balance 2600 699 Lab Results Last 24 Hrs: Laboratory Results - last 24 hr 02/27/18 02/27/18 Range/Units 04:45 04:45 WBC 14.97 H (4.0-11.0) K/uL RBC 3.88 L (4.30-5.90) M/uL Hgb 10.5 L (12.0-16.0) g/dL Hct 32.6 L (36.0-46.0) % MCV 84.0 (80.0-98.0) fL MCH 27.1 (27.0-32.0) pg MCHC 32.2 (31.0-37.0) g/dL RDW Std Deviation 45.0 (28.0-62.0) fl RDW Coeff of Dagoberto 15 (11.0-15.0) % Plt Count 334 (150-400) K/uL MPV 10.30 (7.40-12.00) fL Neut % (Auto) 78.7 (48.0-80.0) % Lymph % (Auto) 13.0 L (16.0-40.0) % [place] % (Auto) 8.1 (0.0-15.0) % Eos % (Auto) 0.1 (0.0-7.0) % Baso % (Auto) 0.1 (0.0-1.5) % Neut # (Auto) 11.8 H (1.4-5.7) K/uL Lymph # (Auto) 1.9 (0.6-2.4) K/uL [place] # (Auto) 1.2 H (0.0-0.8) K/uL Eos # (Auto) 0.0 (0.0-0.7) K/uL Baso # (Auto) 0.0 (0.0-0.1) K/uL Nucleated RBC % 0.0 /100WBC Nucleated RBCs # 0 K/uL Sodium 138 (136-145) mmol/L Potassium 3.9 (3.5-5.1) mmol/L Chloride 106 (98-107) mmol/L Carbon Dioxide 23.0 (21.0-32.0) mmol/L BUN 12 (7.0-18.0) mg/dL Creatinine 0.9 (0.6-1.0) mg/dL Est Cr Clr Drug Dosing 85.10 mL/min Estimated GFR (MDRD) > 60.0 ml/min Glucose 141 H (74-106) mg/dL Calcium 8.7 (8.5-10.1) mg/dL Med Orders - Current: Current Medications Lactated Ringer's (Ringers, Lactated) 1,000 mls @ 125 mls/hr IV ASDIRECTED [facility] Last Admin: 02/27/18 06:41 Dose: 125 mls/hr Lactated Ringer's (Ringers, Lactated) 500 mls @ 999 mls/hr IV ASDIRECTED [facility] Ketorolac Tromethamine (Toradol) 30 mg IVPUSH Q6H [facility] Stop: 02/27/18 08:46 Last Admin: 02/27/18 02:59 Dose: 30 mg Morphine Sulfate (Morphine) 4 mg IVPUSH Q2H PRN PRN Reason: Pain (severe 7-10) Nitrofurantoin Macrocrystals (Macrodantin) 50 mg PO BEDTIME [facility] Last Admin: 02/26/18 21:27 Dose: 50 mg Ondansetron HCl (Zofran) 4 mg IVPUSH Q6H PRN PRN Reason: Nausea/Vomiting Oxycodone/Acetaminophen (Percocet 325-5 Mg) 1 tab PO Q4H PRN PRN Reason: Pain (moderate 4-6) Oxycodone/Acetaminophen (Percocet 325-5 Mg) 2 tab PO Q4H PRN PRN Reason: Pain (moderate 4-6) Last Admin: 02/27/18 07:20 Dose: 2 tab Promethazine HCl (Phenergan) 25 mg IM Q6H PRN PRN Reason: Nausea/Vomiting Discontinued Medications Belladonna Alkaloids/Opium (B & O Supprettes No. 15a) 1 supp RECTAL ONETIME ONE Stop: 02/26/18 14:42 Last Admin: 02/26/18 15:58 Dose: Not Given Bupivacaine HCl (Sensorcaine-Mpf 0.25%) Confirm Administered Dose 10 ml .ROUTE .STK-MED ONE Stop: 02/26/18 11:14 Dexamethasone (Dexamethasone) Confirm Administered Dose 20 mg .ROUTE .STK-MED ONE Stop: 02/26/18 12:26 Fentanyl (Sublimaze) Confirm Administered Dose 250 mcg .ROUTE .STK-MED ONE Stop: 02/26/18 11:47 Fentanyl (Sublimaze) Confirm Administered Dose 100 mcg .ROUTE .STK-MED ONE Stop: 02/26/18 14:11 Fluorescein Sodium (Ak-Fluor) Confirm Administered Dose 5 ml .ROUTE .STK-MED ONE Stop: 02/26/18 11:16 Hydromorphone HCl (Dilaudid) 2 mg IVPUSH ONETIME ONE Stop: 02/26/18 14:41 Last Admin: 02/26/18 14:44 Dose: 2 mg Ketorolac Tromethamine (Toradol) Confirm Administered Dose 30 mg .ROUTE .STK- MED ONE Stop: 02/26/18 12:26 Ketorolac Tromethamine (Toradol) 30 mg IVPUSH ONETIME ONE Stop: 02/26/18 14:38 Last Admin: 02/26/18 15:58 Dose: Not Given Lidocaine (Xylocaine-Mpf 2%) Confirm Administered Dose 5 ml .ROUTE .STK-MED ONE Stop: 02/26/18 12:26 Methylene Blue (Provayblue) Confirm Administered Dose 50 mg .ROUTE .STK-MED ONE Stop: 02/26/18 11:14 Midazolam HCl (Versed 1 Mg/Ml) Confirm Administered Dose 2 mg .ROUTE .STK-MED ONE Stop: 02/26/18 11:47 Ondansetron HCl (Zofran) Confirm Administered Dose 4 mg .ROUTE .STK-MED ONE Stop: 02/26/18 12:26 Propofol (Diprivan 20 Ml) Confirm Administered Dose 200 mg .ROUTE .STK-MED ONE Stop: 02/26/18 11:47 Rocuronium [place] (Zemuron) Confirm Administered Dose 100 mg .ROUTE .STK-MED ONE Stop: 02/26/18 12:26 - Exam Wound/Incisions: Healing Well, Dressing Dry and Intact General: Alert, Oriented HEENT: Pupils Equal Neck: Supple Lungs: Clear to Auscultation, Normal Respiratory Effort Cardiovascular: Regular Rate, Regular Rhythm GI/Abdominal Exam: Normal Bowel Sounds, Soft, No Organomegaly, No Distention, No Mass Extremities: Normal Inspection, Non-Tender, No Pedal Edema Skin: Warm, Dry, Intact Neurological: No New Focal Deficit Psy/Mental Status: Alert, Normal Affect, Normal Mood - Problem List & Annotations (1) Menorrhagia SNOMED Code(s): 153877756 Code(s): N92.0 - EXCESSIVE AND FREQUENT MENSTRUATION WITH REGULAR CYCLE Status: Acute Current Visit: Yes Qualifiers: Menorrahagia type: with irregular cycle Qualified Code(s): N92.1 - Excessive and frequent menstruation with irregular cycle - Problem List Review Problem List Initiated/Reviewed/Updated: Yes - My Orders Last 24 Hours: Active Orders 24 hr Category Date Time Status Patient Status [ADT] Routine ADT 02/26/18 14:37 Active Notify Provider Intake and Out [RC] ASDIRECTED Care 02/26/18 14:37 Active Notify Provider Vital Signs [RC] ASDIRECTED Care 02/26/18 14:37 Active RT Incentive Spirometry [RC] Q2HWA Care 02/26/18 14:37 Active Up With Assistance [RC] PER UNIT ROUTINE Care 02/26/18 14:37 Active Up ad Vanda [RC] PER UNIT ROUTINE Care 02/26/18 14:37 Active Regular Diet [DIET] Diet 02/26/18 Dinner Active Acetaminophen/oxyCODONE [Percocet 325-5 MG] Med 02/26/18 14:37 Active 1 tab PO Q4H PRN Acetaminophen/oxyCODONE [Percocet 325-5 MG] Med 02/26/18 14:37 Active 2 tab PO Q4H PRN Ketorolac [Toradol] Med 02/26/18 14:45 Active 30 mg IVPUSH Q6H Lactated Ringers [Ringers, Lactated] 1,000 ml Med 02/26/18 08:45 Active IV ASDIRECTED Lactated Ringers [Ringers, Lactated] 500 ml Med 02/26/18 19:00 Active IV ASDIRECTED Morphine Med 02/26/18 14:37 Active 4 mg IVPUSH Q2H PRN Nitrofurantoin Macrocrystal [Macrodantin] Med 02/26/18 21:00 Active 50 mg PO BEDTIME Ondansetron [Zofran] Med 02/26/18 14:37 Active 4 mg IVPUSH Q6H PRN Promethazine [Phenergan] Med 02/26/18 14:37 Active 25 mg IM Q6H PRN Peripheral IV Discontinue [OM.PC] Routine Oth 02/26/18 14:37 Ordered Sequential Compression Device [OM.PC] Per Unit Routine Oth 02/26/18 14:37 Ordered Resuscitation Status Routine Resus Stat 02/26/18 14:37 Ordered Medication Orders Lactated Ringer's (Ringers, Lactated) 1,000 mls @ 125 mls/hr IV ASDIRECTED [facility] Last Admin: 02/27/18 06:41 Dose: 125 mls/hr Infusion: 02/27/18 05:27 Dose: 125 mls/hr Admin: 02/26/18 21:27 Dose: 125 mls/hr Infusion: 02/26/18 16:50 Dose: 125 mls/hr Admin: 02/26/18 08:50 Dose: 125 mls/hr Lactated Ringer's (Ringers, Lactated) 500 mls @ 999 mls/hr IV ASDIRECTED [facility] Ketorolac Tromethamine (Toradol) 30 mg IVPUSH Q6H [facility] Stop: 02/27/18 08:46 Last Admin: 02/27/18 02:59 Dose: 30 mg Admin: 02/26/18 21:27 Dose: 30 mg Admin: 02/26/18 15:59 Dose: Morphine Sulfate (Morphine) 4 mg IVPUSH Q2H PRN PRN Reason: Pain (severe 7-10) Nitrofurantoin Macrocrystals (Macrodantin) 50 mg PO BEDTIME [facility] Last Admin: 02/26/18 21:27 Dose: 50 mg Ondansetron HCl (Zofran) 4 mg IVPUSH Q6H PRN PRN Reason: Nausea/Vomiting Oxycodone/Acetaminophen (Percocet 325-5 Mg) 1 tab PO Q4H PRN PRN Reason: Pain (moderate 4-6) Oxycodone/Acetaminophen (Percocet 325-5 Mg) 2 tab PO Q4H PRN PRN Reason: Pain (moderate 4-6) Last Admin: 02/27/18 07:20 Dose: 2 tab Admin: 02/27/18 02:58 Dose: 2 tab Admin: 02/26/18 22:21 Dose: 2 tab Admin: 02/26/18 17:59 Dose: 2 tab Promethazine HCl (Phenergan) 25 mg IM Q6H PRN PRN Reason: Nausea/Vomiting - Assessment Assessment (Free Text/Narrative):: POD#1 after LAVH, vitals stable, labs appropriate. Tolerating regular diet, ambulating. Pain well controlled with medication. - Plan Plan (Free Text/Narrative):: POD#1 after LAVH, dismiss to home today, continue rangel with leg bag for one week. Discharge precautions reviewed.
[2018-02-27 08:43] VITALS: BP 123/43
== END 2018-02-27 10:31 | disposition home or self-care (01) ==
LOC: MW.SDS 08:36 → MW.MS 15:27 → MW.SDS 02-27 10:31
PROVIDERS: ATTEND Obstetrics & Gynecology
DX: C54.1 Malignant neoplasm of endometrium (principal); D25.1 Intramural leiomyoma of uterus; N99.71 Accidental puncture and laceration of a genitourinary system organ or structure during a genitourinary system procedure; F32.9 Major depressive disorder, single episode, unspecified; F41.9 Anxiety disorder, unspecified; K21.9 Gastro-esophageal reflux disease without esophagitis; E66.9 Obesity, unspecified; F17.210 Nicotine dependence, cigarettes, uncomplicated; Z79.899 Other long term (current) drug therapy; Z98.891 History of uterine scar from previous surgery; Z68.34 Body mass index [BMI] 34.0-34.9, adult
CPT/HCPCS: 36415; 51999; 58550; 80048; 80053; 85025; 85027; 86850; 86900; 86901; A9270; J1100; J1170; J1885; J2250; J2405; J3010; J7120; 88309; J2704